=== PATIENT | male | born 1980 | race Caucasian/White ===

== ENCOUNTER 2016-05-31 20:10 | Emergency (ER) | payer MEDICAID ==
[2016-05-31] MEDS ORDERED: ONDANSETRON 4 MG/2 ML VIAL ONE (20:32)
[2016-05-31] MEDS ORDERED: NS 1,000 ML IV ONE (20:38)
[2016-05-31 21:06] LABS: % IMMATURE GRANULYOCYTES 0.4 % (0.0-1.1); ABSOLUTE IMMATURE GRANULOCYTES 0.05 10^3/uL (0.00-0.10); ADD DIFF? NO; ADD MORPH? NO; ADD SCAN? NO; ATYPICAL LYMPHOCYTE FLAG 10 (0-99); FRAGMENT RBC FLAG 0 (0-99); HEMATOCRIT 45.8 % (40.0-51.0); HEMOGLOBIN 16.7 g/dL (13.7-17.5); LEFT SHIFT FLG 0 (0-99); LIPEMIA HEMOLYSIS FLAG 90 (0-99); MEAN CELL HEMOGLOBIN 31.6 pg (27.9-34.1); MEAN CELL HEMOGLOBIN CONCENTR. 36.5 g/dL (32.4-36.7); MEAN CELL VOLUME 86.6 fL (81.5-99.8); MEAN PLATELET VOLUME 10.5 fL (8.7-11.7); PLATELET CLUMPS FLAG 0 (0-99); PLATELET COUNT 276 10^3/uL (150-400); RED BLOOD CELL COUNT 5.29 10^6/uL (4.40-6.38)
--- NOTE | 2016-05-31 21:10 | EDPHY ---
H & P Stated Complaint: abd burning with emesis/manic Source: Patient, Family - Personal History Current Tetanus/Diphtheria Vaccine: Unsure Current Tetanus Diphtheria and Acellular Pertussis (TDAP): Unsure - Medical/Surgical History Hx Asthma: No Hx Chronic Respiratory Disease: No Hx Diabetes: No Hx Cardiac Disease: No Hx Renal Disease: No Hx Cirrhosis: No Hx Alcoholism: No Hx HIV/AIDS: No Hx Splenectomy or Spleen Trauma: No Other PMH: BIPOLAR - Social History Smoking Status: Never smoked Alcohol Use: Occasionally Drug Use: Marijuana Time Seen by Provider: 05/31/16 20:26 HPI/ROS: CHIEF COMPLAINT: "I thought I ate something poison" HISTORY OF PRESENT ILLNESS: The patient is a 35 y/o male, with a history of bipolar disease and several psychiatric admissions, complaining today of possibly eating something "poison". He reports he has not been on any prescribed medications for the last 5 years and instead sees an "ayurvedic doctor" who "has me on a lot of herbs." He reports that the last week-and-a- half has been "very rough" and he has felt "hypomanic." He states, "I feel like I've eaten some sort of poison" and also states "I started dating someone new and I don't know where she's been." He induced vomiting to purge any poison. He denies diarrhea or other complaints. I spoke separately with his father and girlfriend. His father states he has been "big-time manic" for the last couple of weeks and "he blew up tonight." He thinks his girlfriend is a witch and is preoccupied with demons. His girlfriend describes him repeatedly cycling between paranoia, anger, sadness, and obsessiveness with brief moments of clarity. His father thinks he has been off medications for 1 year and reports he has a "tendency to self-medicate." His sleep has been decreasing over the last week. REVIEW OF SYSTEMS: A 10 point review of systems was performed and is negative with the exception of the elements mentioned in the history of present illness. (Shantel Obrien) - Medical/Surgical History PMH: PMH includes: 1. Bipolar disorder 2. Gastritis Prior medical records reviewed including psychiatric admission 08/17/12. 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 Smokes marijuana, up to 3-4 joints daily. Denies illicit drug use. Girlfriend lives with him. He has a PhD in humanities. Jorge L (father): [phone] Haven (girlfriend): [phone] (Shantel Obrien) - Physical Exam Exam: General Appearance: Alert, no acute distress. Blood pressure 152/108, heart rate 116 at triage. Eyes: Pupils equal and round, no conjunctival injection, no discharge. ENT, Mouth: Mucous membranes are moist, no oropharyngeal erythema or edema. Neck: No lymphadenopathy, supple. Respiratory: Lungs are clear to auscultation; no wheezes, rales, or rhonchi. Cardiovascular: Tachycardic; no murmur, rub, or gallop. Gastrointestinal: Abdomen is soft and non tender, no masses or organomegaly, bowel sounds normal. Skin: Warm and dry, no rashes, normal color. Back: Nontender to palpation over the thoracolumbar spine. Extremities: No lower extremity edema, no calf tenderness or swelling. Neuro: Alert. Oriented to person, place, time. PERRL. EOMI. Facial expressions symmetric. Tongue midline. Gustavo easily and symmetrically. Normal gait. Psychiatric: Slightly pressured speech. (Shantel Obrien) Constitutional: Initial Vital Signs Temperature (C) 37.2 C 05/31/16 20:22 Heart Rate 116 H 05/31/16 20:22 Respiratory Rate 20 05/31/16 20:22 Blood Pressure 152/108 H 05/31/16 20:22 O2 Sat (%) 94 05/31/16 20:22 O2 Delivery Mode Room Air Allergies/Adverse Reactions: gluten Allergy (Severe, Verified 12/07/12 01:11) Diarrhea Medical Decision Making ED Course/Re-evaluation: 1313: I assumed care of this patient from Dr. Keating at shift change. ( Miguel Cheung) I took over care of this patient at 1:00 a.m.. This patient is here for bipolar an acute yves. He is to be transferred to an acute treatment unit. Destination pending at this time. He is on an M1 hold. 5:30 a.m., patient is to be accepted at [facility] for further management of his psychiatric problems. His leukocytosis is likely nonspecific and does not represent an acute infectious problem. 7:00 a.m., no further issues during my shift. The patient still awaits transfer to an acute treatment unit. He remains on an M1 hold. Care turned over to Dr. Giovanna Keating at this time. (Sari Gonzalez) 2109: Patient placed on M1 hold for history of bipolar disorder not on medications. He showing signs of yves and paranoia. Standard psychiatric labs drawn. Plan for mental health evaluation once medically clear. I feel that he is a danger to himself. He was placed on a 72 hour hold. Patient medically cleared once labs returned. Urine drug screen positive for marijuana. His alcohol was slightly elevated but repeat breathalyzer is normal. Patient requested Benadryl. 50mg PO Benadryl administered. He has had hypertension in the ED. His tachycardia resolved. (Shantel Obrien) Differential Diagnosis: Considered a differential diagnosis that includes but is not limited to bipolar disease with depression and/or yves, psychosis, paranoia, and effect of stimulants or intoxicants. (Shantel Obrien) Other Provider: I assumed care of this patient at 7:00 a.m.. I was informed by EPS, Tez, at noon that the patient has been accepted at [facility]. Accepting doctor, Dr. Deleon. Evidently, [facility] called to visit with the patient over the phone, discussed expectations, etc, and the patient refused. I discussed the situation with the patient at 3:00 p.m.. He tells me that he and his father have already made arrangements for him to be placed at [facility]. I then contacted [facility] and [facility]. Patient has been accepted at [facility]. Nurse to nurse report should be made at 6:00 p.m. and the patient will be transferred at 7:00 p.m.. I did inform the patient of this plan. (Giovanna Keating) Care Turn Over: His care will be transferred to Dr. Gonzalez at 12:15 p.m.. He has not yet undergone psychiatric evaluation. (Shantel Obrien) - Data Points Laboratory Results: Laboratory Results 05/31/16 20:30 05/31/16 20:30 Medications Given: Discontinued Medications Diphenhydramine HCl (Benadryl) 50 mg PO EDNOW ONE Stop: 05/31/16 22:27 Last Admin: 06/01/16 01:00 Dose: 25 mg Sodium Chloride (Ns) 1,000 mls @ 0 mls/hr IV ONCE ONE PRN Reason: Wide Open Stop: 05/31/16 20:39 Last Admin: 05/31/16 20:39 Dose: 1,000 mls Departure - Departure Disposition: Other Psych, Not Stephane Clinical Impression: Bipolar disorder Qualifiers: Active/Remission status: currently active Current bipolar episode type: manic Current episode severity: moderate Qualified Code(s): F31.12 - Bipolar disorder , current episode manic without psychotic features, moderate Condition: Fair Referrals: UNKNOWN,DR [Other] - As per Instructions Report Scribed for: Shantel Obrien Report Scribed by: Jamila Reyna Date of Report: 05/31/16 Time of Report: 21:14 Physician Review and Approval Statement: 06/01/16 00:14 Portions of this note were transcribed by the medical records auditor. I, Dr. Shantel Obrien, personally performed the history, physical exam, and medical decision- making; and confirmed the accuracy of the information in the transcribed note. ( Shantel Obrien)
[2016-05-31 21:15] LABS: ANION GAP 14 mEq/L (8-16); CARBON DIOXIDE 25 mEq/l (22-31); CHLORIDE 102 mEq/L (97-110); CREATININE 1.1 mg/dL (0.7-1.3); ETHANOL SERUM 13 mg/dL (0-10); GLOMERULAR FILTRATION RATE > 60; GLUCOSE 96 mg/dL (70-100); POTASSIUM 4.4 mEq/L (3.5-5.2); SODIUM 141 mEq/L (134-144)
[2016-06-01] MEDS: diphenhydrAMINE 25 MG CAP PO ONE ×2 (01:00→06:13)
[2016-06-01] MEDS ORDERED: diphenhydrAMINE 25 MG CAP PO ONE (12:59)
[2016-06-01 18:10] VITALS: BP 144/89; PULSE 94; RESP 20; TEMP 98.8; O2SAT 96
== END 2016-06-01 18:54 ==
DX: F13.129 Sedative, hypnotic or anxiolytic abuse with intoxication, unspecified (principal)
CPT/HCPCS: 80305; G0480; J2405

== ENCOUNTER 2017-01-22 10:43 | Emergency (ER) | payer MEDICAID ==
[2017-01-22] MEDS ORDERED: NS 1,000 ML IV ONE (10:58)
[2017-01-22] MEDS ORDERED: ASPIRIN 81 MG CHEWABLE TAB PO ONE (10:58)
--- NOTE | 2017-01-22 11:00 | CPEKG ---
Heart Rate: 106 RR Interval: 566 P-R Interval: 136 QRSD Interval: 80 QT Interval: 332 QTC Interval: 441 P [place]: 68 QRS [place]: 74 T Wave [place]: 32 EKG Severity - BORDERLINE ECG - EKG Impression: SINUS TACHYCARDIA WITH IRREGULAR RATE 82-119 Electronically Signed By: Valdez Tena 22-Jan-2017 11:01:42
--- NOTE | 2017-01-22 11:01 | EDPHY ---
H & P Stated Complaint: 1 week chest pain/dizzy Time Seen by Provider: 01/22/17 10:52 HPI/ROS: CHIEF COMPLAINT: Blood pressure HISTORY OF PRESENT ILLNESS: Patient is a 36-year-old man who comes to the emergency department complaining that his blood pressure has been labile over the last few weeks and that over the last 3 days he has experienced chest tightness. Also slight nausea but no vomiting. No diaphoresis. No shortness of breath. He did have slight respiratory infection about 3 weeks ago.. The patient states that he is being treated for PTSD symptoms but that he has not had any recently. He has a family history of coronary disease. He does not smoke. No high cholesterol. He does have very mild lightheadedness associated with his chest pain. It was most severe about 24 hours ago but has been constant since then. At triage she was hypertensive but here in the room is 119 /60. REVIEW OF SYSTEMS: Constitutional: denies: chills, fever, recent illness, recent injury EENTM: denies: blurred vision, double vision, nose congestion Respiratory: denies: cough, shortness of breath Cardiac: See HPI Gastrointestinal/Abdominal: denies: abdominal pain, diarrhea, nausea, vomiting, blood streaked stools Genitourinary: denies: dysuria, frequency, hematuria, pain Musculoskeletal: denies: joint pain, muscle pain Skin: denies: lesions, rash, jaundice, bruising Neurological: denies: headache, numbness, paresthesia, tingling, dizziness, weakness Hematologic/Lymphatic: denies: blood clots, easy bleeding, easy bruising Immunologic/allergic: denies: HIV/AIDS, transplant EXAM: GENERAL: Well-appearing, well-nourished and in no acute distress. HEAD: Atraumatic, normocephalic. EYES: Pupils equal round and reactive to light, extraocular movements intact, sclera anicteric, conjunctiva are normal. ENT: TMs normal, nares patent, oropharynx clear without exudates. Moist mucous membranes. NECK: Normal range of motion, supple without lymphadenopathy or JVD. LUNGS: Breath sounds clear to auscultation bilaterally and equal. No wheezes rales or rhonchi. HEART: Regular rate and rhythm without murmurs, rubs or gallops. ABDOMEN: Soft, nontender, normoactive bowel sounds. No guarding, no rebound. No masses appreciated. BACK: No CVA tenderness, no spinal tenderness, step-offs or deformities EXTREMITIES: Normal range of motion, no pitting or edema. No clubbing or cyanosis. NEUROLOGICAL: Cranial nerves II through XII grossly intact. Normal speech, normal gait. 5/5 strength, normal movement in all extremities, normal sensation PSYCH: Normal mood, normal affect. SKIN: Warm, dry, normal turgor, no visible rashes or lesions. Source: Patient Exam Limitations: No limitations - Personal History Current Tetanus/Diphtheria Vaccine: Yes - Medical/Surgical History Hx Asthma: No Hx Chronic Respiratory Disease: No Hx Diabetes: No Hx Cardiac Disease: No Hx Renal Disease: No Hx Cirrhosis: No Hx Alcoholism: No Hx HIV/AIDS: No Hx Splenectomy or Spleen Trauma: No Other PMH: BIPOLAR, PTSD - Family History Significant Family History: No pertinent family hx - Social History Smoking Status: Never smoked Alcohol Use: Sober Drug Use: None Constitutional: Initial Vital Signs Temperature (C) 36.9 C 01/22/17 10:46 Heart Rate 97 01/22/17 10:46 Respiratory Rate 18 01/22/17 10:46 Blood Pressure 159/96 H 01/22/17 10:46 O2 Sat (%) 99 01/22/17 10:46 O2 Delivery Mode Room Air Allergies/Adverse Reactions: gluten Allergy (Severe, Verified 01/22/17 10:45) Diarrhea Home Medications: Medication Instructions Recorded NK [No Known Home Meds] 01/22/17 Medical Decision Making - Diagnostics EKG Interpretation: An EKG obtained and was read and documented in trace view. Please see trace view for full reading and report. Sinus tachycardia, no acute ischemic changes Imaging: Discussed imaging studies w/ call center rn Radiologist ED Course/Re-evaluation: 1:30 p.m. we discussed the patient's test results which are very reassuring considering the duration of his symptoms. I offered further observation and repeat testing but he declines. He is eager to go home. He states that he has been using pulsatile magnetic treatments for his chronic back pain and wonders if this has something to do with his chest discomfort. I encouraged him to speak with the manufacture. We discussed indications for returning. We also discussed pleurisy and other differential diagnoses. Differential Diagnosis: Partial list of the Differential diagnosis considered include but were not limited to; acute coronary disease, arrhythmia, pleurisy and although unlikely based on the history and physical exam, I also considered PE, dissection, aneurysm, pneumothorax, pneumonia. I discussed these differential diagnoses and the plan with the patient as well as the usual and expected course. The patient understands that the diagnosis is provisional and that in medicine we are not always correct and that further workup is often warranted. Usual and customary warnings were given. All of the [patient's] questions were answered. The [patient was] instructed to return to the emergency department should the symptoms at all worsen or return, otherwise to followup with the physician as we discussed. - Data Points Laboratory Results: Laboratory Results 01/22/17 11:00 01/22/17 11:00 Medications Given: Discontinued Medications Aspirin (Aspirin) 324 mg PO EDNOW ONE Stop: 01/22/17 10:59 Last Admin: 01/22/17 11:15 Dose: 324 mg Sodium Chloride (Ns) 1,000 mls @ 0 mls/hr IV EDNOW ONE; Wide Open PRN Reason: Protocol Stop: 01/22/17 10:59 Last Admin: 01/22/17 11:16 Dose: 1,000 mls Departure - Departure Disposition: Home, Routine, Self-Care Clinical Impression: Chest pain Qualifiers: Chest pain type: unspecified Qualified Code(s): R07.9 - Chest pain, unspecified Condition: Fair Instructions: Chest Pain (ED) Referrals: [facility] [Other] - As per Instructions
[2017-01-22 11:12] VITALS: RESP 16
[2017-01-22 11:13] LABS: % IMMATURE GRANULYOCYTES 0.4 % (0.0-1.1); ABSOLUTE IMMATURE GRANULOCYTES 0.04 10^3/uL (0.00-0.10); ADD DIFF? NO; ADD MORPH? NO; ADD SCAN? NO; ATYPICAL LYMPHOCYTE FLAG 0 (0-99); FRAGMENT RBC FLAG 0 (0-99); HEMATOCRIT 48.2 % (40.0-51.0); HEMOGLOBIN 17.6 g/dL (13.7-17.5); LEFT SHIFT FLG 0 (0-99); LIPEMIA HEMOLYSIS FLAG 90 (0-99); MEAN CELL HEMOGLOBIN 32.1 pg (27.9-34.1); MEAN CELL HEMOGLOBIN CONCENTR. 36.5 g/dL (32.4-36.7); MEAN PLATELET VOLUME 10.3 fL (8.7-11.7); PLATELET CLUMPS FLAG 10 (0-99); PLATELET COUNT 232 10^3/uL (150-400); RED BLOOD CELL COUNT 5.48 10^6/uL (4.40-6.38); RED CELL DISTRIBUTION WIDTH 12.3 % (11.5-15.2)
[2017-01-22 11:19] LABS: ANION GAP 13 mEq/L (8-16); CALCIUM 9.5 mg/dL (8.5-10.4); CARBON DIOXIDE 23 mEq/l (22-31); CHLORIDE 105 mEq/L (97-110); GLOMERULAR FILTRATION RATE > 60; GLUCOSE 129 mg/dL (70-100); POTASSIUM 4.1 mEq/L (3.5-5.2); SODIUM 141 mEq/L (134-144)
[2017-01-22 11:20] LABS: INR 0.98 (0.83-1.16); PROTIME(PATIENT) 12.9 SEC (12.0-15.0)
[2017-01-22 11:21] LABS: APTT 28.5 SEC (23.0-38.0)
[2017-01-22 11:32] LABS: TROPONIN I 0.015 ng/mL (0.000-0.034)
[2017-01-22 13:42] VITALS: BP 135/76; PULSE 78; TEMP 98.6; O2SAT 98
== END 2017-01-22 13:42 | disposition home or self-care (01) ==
DX: R07.9 Chest pain, unspecified (principal); E86.9 Volume depletion, unspecified